=== PATIENT | male | born 1970 | race Two or more races ===

== ENCOUNTER 2023-01-18 05:55 | Day surgery (SDC) | payer OTHER ==
[~2023-01-18] VITALS: Ht 167.6 cm; Wt 117.9 kg
[~2023-01-18 05:55] MED LIST: CIPRO500 MG PO; COZAAR50 MG; HIBICLENS TP; LOSARTAN-HCTZ1 EAC2 PO; TAMS0.4C PO; TRAMADOL HCL-AP1 TAB PO
[2023-01-18] MEDS ORDERED: OXYC1TAB9 PO (10:49)
== END 2023-01-18 15:45 | disposition home or self-care (01) ==
LOC: CIR.AMB 05:55
PROVIDERS: ATTEND Surgery
DX: K60.3 Anal fistula (principal); K64.4 Residual hemorrhoidal skin tags; K62.89 Other specified diseases of anus and rectum; K64.8 Other hemorrhoids; Z20.822 Contact with and (suspected) exposure to COVID-19; I10 Essential (primary) hypertension; R73.03 Prediabetes

== ENCOUNTER 2023-05-31 07:17 | Day surgery (SDC) | payer OTHER ==
[~2023-05-31] VITALS: Ht 167.6 cm; Wt 113.4 kg
[~2023-05-31 07:17] MED LIST changes: +OXYC1TAB9 PO
[2023-05-31] MEDS ORDERED: OXYC1TAB9 PO (11:41)
== END 2023-05-31 16:35 | disposition home or self-care (01) ==
LOC: CIR.AMB 07:17
PROVIDERS: ATTEND Surgery
DX: K60.3 Anal fistula (principal); K64.4 Residual hemorrhoidal skin tags; K62.89 Other specified diseases of anus and rectum; K64.8 Other hemorrhoids; Z20.822 Contact with and (suspected) exposure to COVID-19; I10 Essential (primary) hypertension

== ENCOUNTER 2024-03-26 14:52 | Emergency (ER) | payer OTHER ==
[~2024-03-26] VITALS: Ht 167.6 cm; Wt 111.1 kg
[2024-03-26] MEDS ORDERED: KETOROLAC TROMETHAMINE 15 MG VIAL IV STA (17:25)
[2024-03-26] MEDS ORDERED: METHYLPREDNISOLONE SOD SUCC 40 MG VIAL IV STA (17:26)
[2024-03-26] MEDS ORDERED: KETOROLAC TROMETHAMINE 30 MG VIAL ONE (17:32)
[2024-03-26] MEDS ORDERED: METHYLPREDNISOLONE SOD SUCC 40 MG VIAL ONE (17:32)
[2024-03-26] MEDS ORDERED: TRAM1TAB98 PO (19:04)
[2024-03-26] MEDS ORDERED: MEDROLPACK PO (19:04)
[2024-03-26] MEDS ORDERED: CELEBREX200MG PO (19:04)
== END 2024-03-26 19:11 | disposition home or self-care (01) ==
LOC: ER 14:53
DX: S83.8X1A Sprain of other specified parts of right knee, initial encounter (principal); X58.XXXA Exposure to other specified factors, initial encounter; Y93.89 Activity, other specified; Y92.89 Other specified places as the place of occurrence of the external cause; Y99.8 Other external cause status; I10 Essential (primary) hypertension